=== PATIENT | male | born 1995 | race African-American/Black ===

== ENCOUNTER 2017-03-23 00:10 | Emergency (ER) | payer OTHER ==
[~2017-03-23] VITALS: Ht 172.7 cm; Wt 99.8 kg
[~2017-03-23 00:10] MED LIST: NAPROSYN500 MG PO; PHENERGAN 25 MG25 M1 PO; PREDNISONE 20 M20 MG PO; TRIAMCINOLONE A80 G2 TOP
[2017-03-23] MEDS ORDERED: ZOFRAN ODT4 MG PO (01:44)
[2017-03-23 02:01] VITALS: BP 118/71
== END 2017-03-23 02:02 | disposition home or self-care (01) ==
LOC: ER 00:10
DX: R11.2 Nausea with vomiting, unspecified (principal); R10.84 Generalized abdominal pain

== ENCOUNTER 2017-03-26 01:24 | Emergency (ER) | payer OTHER ==
[~2017-03-26] VITALS: Ht 172.7 cm; Wt 99.8 kg
[~2017-03-26 01:24] MED LIST changes: +ZOFRAN ODT4 MG PO
[2017-03-26 01:33] VITALS: BP 139/84
[2017-03-26] MEDS ORDERED: PHENERGAN 25 MG25 M1 PO (01:49)
[2017-03-26] MEDS ORDERED: PEPCID40 MG PO (01:49)
[2017-03-26 01:50] LABS: URINE BILIRUBIN NEGATIVE (Negative); URINE BLOOD 1+ (Negative); URINE COLOR YELLOW; URINE GLUCOSE-RANDOM* NEGATIVE (Negative); URINE KETONES NEGATIVE (Negative); URINE LEUKOCYTES-REFLEX NEGATIVE (Negative); URINE PROTEIN (DIPSTICK) 1+ (Negative); URINE SPECIFIC GRAVITY <= 1.005 (1.003-1.035); URINE UROBILINOGEN 0.2 E.U./dl (0.2-1.0)
[2017-03-26 01:52] LABS: ABSOLUTE NEUTROPHILS 6.1 thou/uL (1.4-8.2); BASOPHILS 0.2 % (0.0-2.0); EOSINOPHILS 1.1 % (0.0-3.0); HEMATOCRIT 44.5 % (42.0-52.0); HEMOGLOBIN 15.1 gm/dL (14.0-18.0); LYMPHOCYTES 13.9 % (24.0-44.0); MCH 26.9 pg (26.0-34.0); MCV 79.1 fL (80.0-100.0); PLATELET COUNT 273 thou/uL (150-400); POLYS 73.8 % (36.0-66.0); RBC 5.62 mil/uL (4.50-6.00); RDW 14.1 % (10.5-14.5); WBC 8.2 thou/uL (4.0-11.0)
[2017-03-26 01:53] LABS: MANUAL DIFF NO
[2017-03-26 01:59] LABS: AMP/METHAMP Negative (Negative); BARBITURATES Negative (Negative); BENZODIAZEPINES Negative (Negative); COCAINE Negative (Negative); METHADONE Negative (Negative); OPIATES Negative (Negative); PCP Negative (Negative); THC Negative (Negative)
[2017-03-26 02:00] LABS: CASTS None Seen /LPF (None Seen); SQUAMOUS None Seen /LPF (0-3)
[2017-03-26 02:01] LABS: CRYSTALS None Seen /LPF (None Seen); URINE RBC None Seen /HPF (0-2); URINE WBC-REFLEX None Seen /HPF (0-5)
[2017-03-26 02:07] LABS: CALCIUM 8.7 mg/dL (8.5-10.1); CREATININE 1.4 mg/dL (0.7-1.3); POTASSIUM 3.5 mmol/L (3.5-5.1)
[2017-03-26 02:12] LABS: ALBUMIN 3.6 g/dL (3.4-5.0); TOTAL BILIRUBIN 0.3 mg/dL (<0.1-1.0); TOTAL PROTEIN 7.7 g/dL (6.4-8.2)
== END 2017-03-26 02:40 | disposition home or self-care (01) ==
LOC: ER 01:24
PROVIDERS: Emergency Medicine
DX: R19.7 Diarrhea, unspecified (principal); R11.10 Vomiting, unspecified; R10.9 Unspecified abdominal pain

== ENCOUNTER 2017-04-23 23:45 | Emergency (ER) | payer OTHER ==
[~2017-04-23] VITALS: Ht 172.7 cm; Wt 99.8 kg
[~2017-04-23 23:45] MED LIST changes: +PEPCID40 MG PO
[2017-04-24 00:28] VITALS: BP 122/87
[2017-04-24] MEDS ORDERED: TRAMADOL 50 MG50 MG PO (03:22)
[2017-04-24] MEDS ORDERED: NAPROSYN500 MG PO (03:22)
== END 2017-04-24 03:43 | disposition home or self-care (01) ==
LOC: ER 23:45
DX: S30.0XXA Contusion of lower back and pelvis, initial encounter (principal); S20.229A Contusion of unspecified back wall of thorax, initial encounter; Z98.890 Other specified postprocedural states; W18.39XA Other fall on same level, initial encounter; Y93.39 Activity, other involving climbing, rappelling and jumping off; Y92.310 Basketball court as the place of occurrence of the external cause; Y99.8 Other external cause status

== ENCOUNTER 2017-05-31 00:10 | Emergency (ER) | payer OTHER ==
[~2017-05-31] VITALS: Ht 172.7 cm; Wt 99.8 kg
[~2017-05-31 00:10] MED LIST changes: +TRAMADOL 50 MG50 MG PO
[2017-05-31] MEDS ORDERED: NAPROSYN500 MG PO (01:06)
[2017-05-31] MEDS ORDERED: FLEXERIL PO (01:06)
[2017-05-31 01:27] VITALS: BP 114/81
== END 2017-05-31 01:29 | disposition home or self-care (01) ==
LOC: ER 00:10
DX: S29.012A Strain of muscle and tendon of back wall of thorax, initial encounter (principal); S39.012A Strain of muscle, fascia and tendon of lower back, initial encounter; X58.XXXA Exposure to other specified factors, initial encounter; Y93.89 Activity, other specified; Y92.89 Other specified places as the place of occurrence of the external cause; Y99.8 Other external cause status

== ENCOUNTER 2017-07-07 00:11 | Emergency (ER) | payer OTHER ==
[~2017-07-07] VITALS: Ht 172.7 cm; Wt 99.8 kg
[~2017-07-07 00:11] MED LIST changes: +FLEXERIL PO
[2017-07-07 00:15] VITALS: BP 121/72
== END 2017-07-07 01:00 | disposition home or self-care (01) ==
LOC: ER 00:11
DX: M54.6 Pain in thoracic spine (principal); W10.9XXA Fall (on) (from) unspecified stairs and steps, initial encounter; Y93.89 Activity, other specified; Y92.89 Other specified places as the place of occurrence of the external cause; Y99.8 Other external cause status

== ENCOUNTER 2019-07-17 04:24 | Emergency (ER) | payer OTHER ==
[~2019-07-17] VITALS: Ht 172.7 cm; Wt 104.3 kg
[2019-07-17] MEDS ORDERED: HYDROCORTISO453.6 GM TOP (04:56)
[2019-07-17 05:08] VITALS: BP 131/86
== END 2019-07-17 05:09 | disposition home or self-care (01) ==
LOC: ER 04:24
DX: L30.9 Dermatitis, unspecified (principal)